=== PATIENT | male | born 1985 | race Caucasian/White ===

== ENCOUNTER 2022-12-10 15:10 | Emergency (ER) | payer OTHER ==
[~2022-12-10] VITALS: Ht 175.3 cm; Wt 90.9 kg
[2022-12-10 15:15] VITALS: TEMP 97.6
[2022-12-10] MEDS ORDERED: ONDANSETRON HCL 4 MG/2 ML VIAL IVP ONE (16:15)
[2022-12-10] MEDS ORDERED: HYDROmorphone HCL 2 MG/ML SYRINGE IVP ONE (16:15)
[2022-12-10] MEDS ORDERED: SODIUM CHLORIDE 0.9% 1,000 ML IV ONE (16:15)
[2022-12-10 16:29] LABS: ANION GAP 15 mmol/L (8-16); CALCIUM, TOTAL 8.6 mg/dL (8.8-10.5); CARBON DIOXIDE 26 mmol/L (22-29); CHLORIDE 104 mmol/L (98-107); CREATININE 1.01 mg/dL (0.60-1.30); GLOMERULAR FILTR. RATE CALC > 60 mL/min (>60); GLUCOSE,RANDOM 123 mg/dL (70-110); POTASSIUM 3.6 mmol/L (3.5-5.1); SODIUM SERUM 145 mmol/L (136-145)
[2022-12-10 16:30] LABS: BASOPHILS % (AUTO) 0.3 % (0.0-2.0); EOSINOPHILS % (AUTO) 0.7 % (1.0-6.0); HEMOGLOBIN 14.1 g/dL (13.5-17.5); LYMPHOCYTES # (AUTO) 1.4 K/uL (1.0-4.8); LYMPHOCYTES % (AUTO) 10.9 % (22.0-44.0); MEAN CORPUSCULAR HEMOGLOBIN 25.2 pg (26.0-34.0); MEAN CORPUSCULAR VOLUME 79 fL (80-100); MONOCYTES # (AUTO) 0.5 K/uL (0.1-1.0); MONOCYTES % (AUTO) 3.9 % (2.0-9.0); NEUTROPHILS # (AUTO) 11.1 K/uL (1.8-7.7); NEUTROPHILS % (AUTO) 84.2 % (40.0-70.0); PLATELET COUNT (AUTO) 227 K/uL (150-450); RED BLOOD CELL COUNT(AUTO) 5.58 MIL/uL (4.50-5.90); RED CELL DISTRIBUTION WIDTH 16.3 % (11.5-14.5)
[2022-12-10 16:35] LABS: ALANINE AMINOTRANSFERASE 14 U/L (12-78); ALBUMIN 3.7 g/dL (3.4-5.0); ALKALINE PHOSPHATASE 75 U/L (46-116); ASPARTATE AMINOTRANSFERASE 14 U/L (15-37); BILIRUBIN,TOTAL 0.3 mg/dL (0.1-1.0); LIPASE 30 U/L (16-77); TOTAL PROTEIN, SERUM 7.2 g/dL (6.4-8.2)
[2022-12-10 17:57] LABS: APPEARANCE,URINE CLEAR (CLEAR); BILIRUBIN,URINE NEGATIVE (NEGATIVE); GLUCOSE, URINE (UA) NEGATIVE (NEGATIVE); KETONES,URINE 40-60 mg/dL (NEGATIVE); LEUKOCYTE ESTERASE ,URINE NEGATIVE (NEGATIVE); NITRATE,URINE NEGATIVE (NEGATIVE); OCCULT BLOOD,URINE NEGATIVE (NEGATIVE); PROTEIN,URINE NEGATIVE (NEGATIVE); SPECIFIC GRAVITIY, URINE 1.019 (1.003-1.030); UROBILINOGEN,URINE <=1.0 mg/dL (<=1.0)
[2022-12-10 18:05] LABS: BACTERIA,URINE None Seen /HPF (None Seen); RBC,URINE 0-2 /HPF (0-2); SQUAMOUS EPITHELIAL CELL,UR None Seen /LPF (None Seen); WBC,URINE None Seen /HPF (0-5)
[2022-12-10] MEDS ORDERED: FentaNYL CITRATE PF 100 MCG/2 ML VIAL IVP ONE (18:30)
[2022-12-10] MEDS ORDERED: OMEP20 PO (19:28)
[2022-12-10] MEDS ORDERED: POLY238P PO (19:28)
[2022-12-10] MEDS ORDERED: IBUP-1554 PO (19:28)
[2022-12-10] MEDS ORDERED: HYDR-4072 PO (19:28)
[2022-12-10] MEDS ORDERED: CEPH-558 PO (19:35)
[2022-12-10 19:40] VITALS: BP 135/76; PULSE 88; RESP 18
== END 2022-12-10 19:57 | disposition home or self-care (01) ==
LOC: EMS 15:15
DX: R10.11 Right upper quadrant pain (principal); N20.0 Calculus of kidney; F15.90 Other stimulant use, unspecified, uncomplicated
CPT/HCPCS: 99285; 74176; 96374; 76700; 96375; 96361; 80053; 83690; 85025; 36415; 81001; G0480; J3010; J1170; J2405; J7030